=== PATIENT | female | born 1955 | race Caucasian/White ===

== ENCOUNTER 2017-05-07 09:02 | Emergency (ER) | payer BC ==
[2017-05-07 09:15] VITALS: BP 152/68
--- NOTE | 2017-05-07 09:56 | UC ---
Skin Complaint HPI - HPI Summary HPI Summary: "Sore, blistery rash under right breast spreading to back since . Pt has been using OTC hydrocortisone cream & triamcinolone cream w/o relief. " 1st lesion appeared 2/5 days ago. painful. no relief with 's triamcinolone cream. She is concerned bc she was in the hot tub with her 6 yr old (varicella immunized) granddtr 2 days ago. - History of Current Complaint Chief Complaint: UCRash Time Seen by Provider: 05/07/17 09:23 Stated Complaint: SKIN COMPLAINT - Allergy/Home Medications Allergies/Adverse Reactions: Allergies Allergy/AdvReac Type Severity Reaction Status Date / Time No Known Allergies Allergy Verified 05/07/17 09:06 Home Medications: Home Medications Cholecalciferol TAB* [Vitamin D TAB*] 400 unit PO DAILY 05/07/17 [History Confirmed 05/07/17] Review of Systems Constitutional: Negative Skin: Rash Eyes: Negative ENT: Negative Respiratory: Negative Cardiovascular: Negative Gastrointestinal: Negative Genitourinary: Negative Motor: Negative Neurovascular: Negative Musculoskeletal: Negative Neurological: Negative Psychological: Negative All Other Systems Reviewed And Are Negative: Yes PMH/Surg Hx/FS Hx/Imm Hx Previously Healthy: Yes - she doesnt go to the Dr, no PCP - Surgical History Surgical History: None - Family History Known Family History: Negative: Cardiac Disease, Diabetes - Social History Alcohol Use: Daily Alcohol Amount: couple glasses of wine Substance Use Type: None Smoking Status (MU): Never Smoked Tobacco Physical Exam Triage Information Reviewed: Yes Appearance: Well-Appearing, No Pain Distress, Well-Nourished - very pleasant. here with her . Vital Signs: Initial Vital Signs Temp 97.7 F 05/07/17 09:07 Pulse 98 05/07/17 09:07 Resp 18 05/07/17 09:07 BP 152/68 05/07/17 09:07 Pulse Ox 100 05/07/17 09:07 Vital Signs Reviewed: Yes Eye Exam: Normal ENT Exam: Normal ENT: Positive: Pharynx normal Dental Exam: Normal Neck exam: Normal Neck: Positive: Supple, Nontender, No Lymphadenopathy Respiratory Exam: Normal Respiratory: Positive: Lungs clear, Normal breath sounds, No respiratory distress, No accessory muscle use Cardiovascular Exam: Normal Cardiovascular: Positive: RRR, No Murmur, Pulses Normal, Brisk Capillary Refill Abdomen Description: Positive: Nontender, Soft Musculoskeletal Exam: Normal Neurological Exam: Normal Psychological Exam: Normal Skin: Positive: rashes - right thorax distribution. erythematous base with superimposed clustered vessicles. does not cross mid line. inferior right breast. Course/Dx - Course Course Of Treatment: zoster rt thorax. Reassured and eductaed extensively about potential communicable disease. keep covered. caution around anyone who is . They understood me well and are agreeable with this plan. - Differential Diagnoses - Skin Complaint Differential Diagnoses: Cellulitis, Contact Dermatitis, Varicella Zoster - varicella zoster - Diagnoses Provider Diagnoses: varicella zoster Discharge - Discharge Plan Condition: Stable Disposition: HOME Prescriptions: ValACYclovir (*) [Valtrex 1 GM(*)] 1 gm PO TID #21 tab Patient Education Materials: Shingles (ED) Referrals: No Primary Care Phys,NOPCP [Primary Care Provider] - [facility] [Provider Group] - 3 Days Additional Instructions: -Make sure you start the medicine as soon as possible. -ibuprofen/tylenol for pain. -shingles vaccine is recommended. -make sure to keep the area covered and avoid direct contact with people and swimming until all lesions have crusted over. Caution especially near women who have not been vaccinated to chicken pox or had chicken pox.
== END 2017-05-07 10:21 | disposition home or self-care (01) ==
LOC: UCCORT 09:02
DX: B01.9 Varicella without complication (principal)
CPT/HCPCS: 99202; G0463

== ENCOUNTER 2018-05-31 17:04 | Emergency (ER) | payer BC ==
[2018-05-31 17:53] VITALS: BP 142/87
--- NOTE | 2018-05-31 18:06 | UC ---
Lower Extremity/Ankle HPI - HPI Summary HPI Summary: Pt c/o of intermittent right heel pain that began ~ 8 weeks ago. Pt states she is a "runner" and was averaging ~ 25-30 miles per week. Pt has not changed her sneakers in years and states pain worsens with prolonged weight bearing, standing, and running. Pt has been unable to run in the last few days. - History of Current Complaint Chief Complaint: UCLowerExtremity Stated Complaint: RIGHT HEEL PAIN Time Seen by Provider: 05/31/18 17:45 Hx Obtained From: Patient ?: No Onset/Duration: Sudden Onset, Lasting Weeks, Still Present Severity Initially: Mild Severity Currently: Moderate Pain Intensity: 0 Aggravating Factor(s): Standing, Ambulation Alleviating Factor(s): Rest Able to Bear Weight: Yes - Risk Factors Gout Risk Factors: Age Over 40 DVT Risk Factors: Negative Septic Arthritis Risk Factor: Negative - Allergies/Home Medications Allergies/Adverse Reactions: Allergies Allergy/AdvReac Type Severity Reaction Status Date / Time No Known Allergies Allergy Verified 05/31/18 17:48 PMH/Surg Hx/FS Hx/Imm Hx Previously Healthy: Yes - Surgical History Surgical History: None - Family History Known Family History: Negative: Cardiac Disease, Diabetes - Social History Occupation: Employed Full-time Lives: With Family Alcohol Use: Daily Alcohol Amount: couple glasses of wine Substance Use Type: None Smoking Status (MU): Never Smoked Tobacco Have You Smoked in the Last Year: No Review of Systems Constitutional: Negative Skin: Negative Eyes: Negative ENT: Negative Respiratory: Negative Cardiovascular: Negative Gastrointestinal: Negative Genitourinary: Negative Motor: Negative Neurovascular: Negative Musculoskeletal: Arthralgia - right heel Neurological: Negative Psychological: Negative Is Patient Immunocompromised?: No All Other Systems Reviewed And Are Negative: Yes Physical Exam Triage Information Reviewed: Yes Appearance: Well-Appearing Vital Signs: Initial Vital Signs Temp 98.7 F 05/31/18 17:48 Pulse 71 05/31/18 17:48 Resp 16 05/31/18 17:48 BP 142/87 05/31/18 17:48 Pulse Ox 100 05/31/18 17:48 Vital Signs Reviewed: Yes Eye Exam: Normal ENT Exam: Normal ENT: Positive: Hearing grossly normal Dental Exam: Normal Neck exam: Normal Respiratory: Positive: No respiratory distress Musculoskeletal Exam: Other Musculoskeletal: Positive: Other: - tenderness in center of right heel small firn lump palpated, Neurological Exam: Normal Psychological Exam: Normal Skin Exam: Normal Lower Extremity Course/Dx - Differential Dx/Diagnosis Differential Diagnosis/HQI/PQRI: Bursitis, Strain, Tendonitis Provider Diagnoses: right heel pain. right heel spur Discharge - Sign-Out/Discharge Documenting (check all that apply): Patient Departure - Discharge Plan Condition: Stable Disposition: HOME Patient Education Materials: Heel Spur (ED) Referrals: [facility] [place] [facility]IAN REFERRAL [Outside] - If Needed Romana Scott MD [Medical Doctor] - If Needed No Primary Care Phys,NOPCP [Primary Care Provider] - - Billing Disposition and Condition Condition: STABLE Disposition: Home
== END 2018-05-31 18:15 | disposition home or self-care (01) ==
LOC: UCCORT 17:04
DX: M77.9 Enthesopathy, unspecified (principal)
CPT/HCPCS: 99211; G0463